=== PATIENT | male | born 1935 | race Caucasian/White ===

== ENCOUNTER 2017-09-18 12:09 | Emergency (ER) | payer MEDICARE, OTHER ==
[2014-01-07 15:49] VITALS: Ht 180.3 cm; Wt 98.9 kg
[~2017-09-18] VITALS: Ht 180.3 cm; Wt 98.9 kg
[~2017-09-18 12:09] MED LIST: ALBU8.5H IH; AMOX-559 PO; CA C1TAB85 PO; CETI-169 PO; CHOL10005 PO; CLI150 PO; CPAP INH; DIPH0.5D12 IM; FAMO20TA28 PO; FLUT16SP19 NS; HYDR-385 PO; IBUP800T37 PO; LEVO-85 PO; MAGN400T36 PO; MECL25TA9 PO; MOM PO; MONT10TA PO; NAPR-1043 PO; NAPR220C12 PO; PANT40TA65 PO; PHEN200T32 PO; PNEU0.5D3 IM; PRED20TA6 PO; SUCR1TAB85 PO; TAMS0.4C70 PO; TIO18R; TRIA10.8; [UNRECOGNIZED DRUG - CODE] PO
[2017-09-18] MEDS ORDERED: NS(*) 0.9% 1000 ML BAG 1,000 ML IV ONE (12:22)
--- NOTE | 2017-09-18 12:28 | ER Report ---
History and Physical Time Seen By MD: 12:13 Hx. of Stated Complaint: SOB, COUGH HPI/ROS CHIEF COMPLAINT: Cough, shortness of breath HISTORY OF PRESENT ILLNESS: Patient is a 81-year-old male who presents the ED with complaint of cough and shortness of breath for the past 10 days. He states that initially he thought he had a bad cold and states that his and him both were coughing after they visited [place], [place] for a wedding. He states that he was around multiple ill contacts at that time. He states that in the past 2-3 days he has developed some shortness of breath. He denies any fever. He has not noted any chest pain or palpitations. Patient denies any previous cardiac history such as heart failure or previous heart attacks. He states that he has never had any blood clots, pulmonary embolism, pneumonia, other lung issues in the past. He denies any back pain. REVIEW OF SYSTEMS: Constitutional: No fever, no chills. Eyes: No discharge. ENT: No sore throat. Cardiovascular: See history of present illness. Respiratory: See history of present illness. Gastrointestinal: No abdominal pain, no vomiting. Musculoskeletal: No back pain. Skin: No rashes. Neurological: No headache. Allergies: Coded Allergies: No Known Drug Allergies (Unverified , 09/18/17) Home Meds Active Scripts Tamsulosin Hcl (TAMSULOSIN HCL) 0.4 Mg Cap.er.24h, 1 CAP PO QHS, #90 CAP 1 Refill Prov:JENELLE ADKINS APRN 08/01/17 Cpap (CPAP HOME) [place], UNIT INH DAILY, #1 Prov:JENELLE ADKINS APRN 07/29/17 Meclizine Hcl (MECLIZINE HCL) 25 Mg Tablet, 1 TAB PO TID Y for DIZZINESS, #180 TAB 0 Refills Prov:JENELLE ADKINS APRN 06/20/17 Triamcinolone Acetonide (Nasacort) 10.8 Ml [place], 2 SPRAY NA DAILY, #3 BOTTLE 3 Refills Prov:JENELLE ADKINS APRN 06/20/17 Cetirizine Hcl (CETIRIZINE HCL) 10 Mg Tablet, 1 TAB PO QDAY, #90 TAB 3 Refills TAKE 1 TABLET DAILY. Prov:JENELLE ADKINS APRN ELEMENTARY SCHOOL DIRECTOR-C 06/20/17 Pantoprazole Sodium (PANTOPRAZOLE SODIUM) 40 Mg Tablet.dr, 40 MG PO BID, #60 TAB.SR 2 Refills Prov:SAGAR FRANKEL MD 08/11/16 Albuterol Sulfate 90 Mcg/Act (PROAIR HFA 90 MCG/ACT) 8.5 Gm Hfa.aer.ad, 2 PUFF IH TID Y for to help breathing., #1 CON 11 Refills Prov:SONIA SOSA MD 11/14/14 Reported Medications Magnesium Oxide (MAGNESIUM OXIDE) 400 Mg Tablet, 400 MG PO BID 07/21/17 Magnesium Hydroxide (MILK OF MAGNESIA) 400 Mg/5 Ml Oral.susp, 400 MG PO QWEEK, BOTTLE 08/10/16 Naproxen Sodium (ALEVE) 220 Mg Capsule, 1 TAB PO BID, #100 CAPSULE 11/14/14 Reviewed Nurses Notes: Yes Old Medical Records Reviewed: Yes Hx Smoking: No Smoking Status: Never Smoker Hx Alcohol Use: Yes Constitutional Vital Sign - Last 24 Hours 09/18/17 09/18/17 09/18/17 09/18/17 12:13 12:30 13:00 13:15 Temp 98.2 Pulse 126 117 111 Resp 22 24 9 B/P (MAP) 166/87 154/78 (103) 130/80 (97) 130/82 (98) Pulse Ox 91 93 O2 Delivery Room Air 09/18/17 09/18/17 09/18/17 09/18/17 13:47 13:52 13:52 14:00 Pulse 79 77 Resp 11 B/P (MAP) 144/71 (95) 133/78 (96) Pulse Ox 88 97 O2 Delivery Room Air 09/18/17 09/18/17 14:03 14:15 Pulse 72 B/P (MAP) 126/71 (89) Physical Exam General Appearance: The patient is alert, has no immediate need for airway protection and no signs of toxicity. Patient appears to be no acute distress. Eyes: Pupils equal and round no pallor or injection. ENT, Mouth: Mucous membranes are moist. Respiratory: There are no retractions, lungs are clear to auscultation. Cardiovascular: Tachycardia, regular rhythm. Gastrointestinal: Abdomen is soft and non tender, no masses, bowel sounds normal. Skin: Warm and dry, no rashes. Musculoskeletal: Neck is supple non tender. Extremities are nontender, nonswollen and have full range of motion. DIFFERENTIAL DIAGNOSIS: After history and physical exam differential diagnosis was considered for shortness of breath including but not limited to pulmonary infectious process, COPD, asthma, pulmonary embolus and congestive heart failure. Medical Decision Making Data Points Result Diagram: 09/18/17 1223 09/18/17 1223 Laboratory Hematology Test 09/18/17 12:23 Red Blood Count 4.92 M/uL (4.00-5.60) Mean Corpuscular Volume 96.1 fL (80.0-96.0) Mean Corpuscular Hemoglobin 33.5 pg (26.0-33.0) Mean Corpuscular Hemoglobin Concent 34.8 g/dL (32.0-36.0) Red Cell Distribution Width 13.2 % (11.5-14.5) Mean Platelet Volume 9.0 fL (7.2-11.1) Neutrophils (%) (Auto) 73.4 % (39.4-72.5) Lymphocytes (%) (Auto) 9.2 % (17.6-49.6) Monocytes (%) (Auto) 16.5 % (4.1-12.4) Eosinophils (%) (Auto) 0.2 % (0.4-6.7) Basophils (%) (Auto) 0.7 % (0.3-1.4) Nucleated RBC Relative Count (auto) 0.1 /100WBC Neutrophils # (Auto) 8.3 K/uL (2.0-7.4) Lymphocytes # (Auto) 1.0 K/uL (1.3-3.6) Monocytes # (Auto) 1.9 K/uL (0.3-1.0) Eosinophils # (Auto) 0.0 K/uL (0.0-0.5) Basophils # (Auto) 0.1 K/uL (0.0-0.1) Nucleated RBC Absolute Count (auto) 0.01 K/uL D-Dimer Quantitative (PE/DVT) 0.94 ug/ml (0-0.50) Sodium Level 134 mmol/L (137-145) Potassium Level 3.9 mmol/L (3.5-5.0) Chloride Level 101 mmol/L (98-107) Carbon Dioxide Level 19 mmol/L (22-30) Blood Urea Nitrogen 22 mg/dl (9-21) Creatinine 1.10 mg/dl (0.66-1.25) Glomerular Filtration Rate Calc > 60.0 Random Glucose 138 mg/dl (75-110) Calcium Level 9.0 mg/dl (8.4-10.2) Total Bilirubin 1.9 mg/dl (0.2-1.3) Aspartate Amino Transf (AST/SGOT) 61 U/L (0-35) Alanine Aminotransferase (ALT/SGPT) 56 U/L (0-56) Alkaline Phosphatase 98 U/L (0-126) Troponin I < 0.012 ng/ml B-Type Natriuretic Peptide 123 pg/ml (0-100) Total Protein 7.8 gm/dl (6.3-8.2) Albumin 4.1 g/dl (3.5-5.0) Chemistry Test 09/18/17 12:23 White Blood Count 11.3 k/uL (4.5-11.0) Red Blood Count 4.92 M/uL (4.00-5.60) Hemoglobin 16.5 g/dL (14.0-18.0) Hematocrit 47.3 % (42.0-52.0) Mean Corpuscular Volume 96.1 fL (80.0-96.0) Mean Corpuscular Hemoglobin 33.5 pg (26.0-33.0) Mean Corpuscular Hemoglobin Concent 34.8 g/dL (32.0-36.0) Red Cell Distribution Width 13.2 % (11.5-14.5) Platelet Count 250 K/uL (150-450) Mean Platelet Volume 9.0 fL (7.2-11.1) Neutrophils (%) (Auto) 73.4 % (39.4-72.5) Lymphocytes (%) (Auto) 9.2 % (17.6-49.6) Monocytes (%) (Auto) 16.5 % (4.1-12.4) Eosinophils (%) (Auto) 0.2 % (0.4-6.7) Basophils (%) (Auto) 0.7 % (0.3-1.4) Nucleated RBC Relative Count (auto) 0.1 /100WBC Neutrophils # (Auto) 8.3 K/uL (2.0-7.4) Lymphocytes # (Auto) 1.0 K/uL (1.3-3.6) Monocytes # (Auto) 1.9 K/uL (0.3-1.0) Eosinophils # (Auto) 0.0 K/uL (0.0-0.5) Basophils # (Auto) 0.1 K/uL (0.0-0.1) Nucleated RBC Absolute Count (auto) 0.01 K/uL D-Dimer Quantitative (PE/DVT) 0.94 ug/ml (0-0.50) Glomerular Filtration Rate Calc > 60.0 Calcium Level 9.0 mg/dl (8.4-10.2) Total Bilirubin 1.9 mg/dl (0.2-1.3) Aspartate Amino Transf (AST/SGOT) 61 U/L (0-35) Alanine Aminotransferase (ALT/SGPT) 56 U/L (0-56) Alkaline Phosphatase 98 U/L (0-126) Troponin I < 0.012 ng/ml B-Type Natriuretic Peptide 123 pg/ml (0-100) Total Protein 7.8 gm/dl (6.3-8.2) Albumin 4.1 g/dl (3.5-5.0) Coagulation Test 09/18/17 12:23 D-Dimer Quantitative (PE/DVT) 0.94 ug/ml EKG/Imaging EKG Interpretation 12 lead EKG: Rhythm: Sinus tachycardia, rate 121 bpm QRS: normal ST segments: No acute ST changes identified. Monitor Interpretation: Sinus Tachycardia Imaging CXR: IMPRESSION: Retrocardiac left lower lobe ill-defined consolidation is most suggestive of a pneumonia. Asymmetric aspiration pneumonitis could be considered in the appropriate setting as well. Report Dictated By: Yossi Gill MD at 09/18/2017 12:54 PM Report E-Signed By: Yossi Gill MD at 09/18/2017 12:55 PM CTA Chest: IMPRESSION: 1. No pulmonary embolism. 2. Left more so than right lower lobe patchy consolidation and airway thickening which could be due to multifocal pneumonia or aspiration pneumonitis. 3. Mild coronary calcifications. 4. Right hemithyroid 1.8 cm nodule. Consider further characterization by nonemergent thyroid ultrasound. Report Dictated By: Yossi Gill MD at 09/18/2017 2:00 PM Report E-Signed By: Yossi Gill MD at 09/18/2017 2:07 PM ED Course/Re-evaluation Clinical Indication for ER IV: Hydration ED Course Will obtain chest x-ray and labs. He is currently tachycardic and will give him 1 L normal saline bolus IV. 09/18/2017 2:30:14 pm - Discussed all labs and imaging with patient. He does appear to have some multifocal pneumonia of the bilateral lower lobes. He has some mild leukocytosis as well. There was an incidental finding of his thyroid which will need follow-up ultrasound. Discussed patient with Dr. Marinelli. Patient does have a CURB-65 score of 2. He does appear to be getting around well and believes he could be successful with close outpatient follow-up. We will give him 1 g Rocephin IV here and send him home with Omnicef and Zithromax. Dr. Marinelli agreed that this would be appropriate for some outpatient treatment. Discussed patient with his primary care provider Jenelle Adkins NP who states that she will follow-up with him in the next 1-2 days. Decision to Disposition Date: Sep 18, 2017 Decision to Disposition Time: 14:33 Depart Departure Latest Vital Signs Vital Signs Date Time Temp Pulse Resp B/P (MAP) Pulse Ox O2 Delivery O2 Flow Rate FiO2 09/18/17 14:15 126/71 (89) 09/18/17 14:03 72 09/18/17 14:00 11 97 09/18/17 13:52 Room Air 09/18/17 12:13 98.2 Impression: Primary Impression: Bilateral pneumonia Condition: Improved Disposition: HOME OR SELF-CARE Referrals: JENELLE ADKINS APRN ELEMENTARY S[employer]OL DIRECTOR-C (PCP) New Scripts Ipratropium/Albuterol Sulfate (IPRAT-ALBUT 0.5-3(2.5) MG/3 ML) 3 Ml Ampul.neb 3 ML IH Q6H Y for prn, #1 BOX Prov: JUAN CARLOS BAUM PA-C 09/18/17 Albuterol Sulfate (VENTOLIN HFA) 18 Gm Inh 2 PUFF INH Q4-6H Y for SHORTNESS OF BREATH, #1 INH Prov: JUAN CARLOS BAUM PA-C 09/18/17 Cefdinir 300 Mg Cap (OMNICEF 300 MG CAP (OR EQUIV)) 300 Mg Cap 300 MG PO BID, #20 CAP Prov: JUAN CARLOS BAUM PA-C 09/18/17 Azithromycin 250 Mg Tab (AZITHROMYCIN 250 MG TAB) 250 Mg Tablet 1 TAB PO QDAY, #6 TAB Take 2 tabs today and then 1 tab a day until gone. Prov: JUAN CARLOS BAUM PA-C 09/18/17 Departure Forms: ER Transition Record, Home Oxygen, Nebulizer RX, Durable Medical Equipment-Oxygen: Nebulizer Reason for Use/Diagnosis: Pneumonia Start Date of the Order: Sep 18, 2017 Route of Administration (if applicable): Nasal Cannula Room Air Oxygen Saturation: 90 ER Prescribing Physician's Name: Epifanio Baum Medications Reconciliation, Patient Portal Information Patient Instructions: Bacterial Pneumonia (ED) Additional Instructions: Stay well-hydrated. Follow-up with primary care provider in 1-2 days regarding her pneumonia and regarding the possible thyroid ultrasound. If having any worsening or concerning symptoms may return to the emergency department. MD Consult Note: Dr. Marinelli, Hospitalist Jenelle Adkins, SIGN MAKER - PCP Problem Qualifiers Primary Impression: Bilateral pneumonia Pneumonia type: due to unspecified organism Lung location: lower lobe of lung Qualified Codes: J18.9 - Pneumonia, unspecified organism JUAN CARLOS BAUM PA-C Sep 18, 2017 12:28
[2017-09-18 12:34] LABS: PLATELET COUNT, AUTOMATED 250 K/uL (150-450)
--- NOTE | 2017-09-18 12:44 | EKG ---
FACILITY: [facility] - [place] PATIENT NAME: TONY BUNN : [id number] MR: [id number] V: [id number] EXAM DATE: ORDERING PHYSICIAN: JUAN CARLOS BRADFORD TECHNOLOGIST: GIGI Chapman Reason : TACHY Blood Pressure : / mmHG Vent. Rate : 121 BPM Atrial Rate : 121 BPM P-R Int : 152 ms QRS Dur : 076 ms QT Int : 322 ms P-R-T Axes : 081 074 075 degrees QTc Int : 457 ms Sinus tachycardia Cannot rule out Anterior infarct , age undetermined Abnormal ECG When compared with ECG of 06-AUG-2016 09:53, T wave amplitude has increased in Inferior leads Confirmed by NARCISA CABRERA ([id number]) on 09/18/2017 8:37:36 PM Referred By: FRANCHESCA Confirmed By:NARCISA CABRERA
--- NOTE | 2017-09-18 12:59 | RADIOLOGY IMAGING REPORT ---
FACILITY: [facility] - [place] PATIENT NAME: Karl Nolasco : 1935 MR: [id number] V: [id number] EXAM DATE: ORDERING PHYSICIAN: JUAN CARLOS BRADFORD TECHNOLOGIST: Location: [facility] - [place] Patient: Karl Nolasco : 1935 Visit/Account:[id number] Date of Sevice: 09/18/2017 Examination: CHEST PA AND LAT Comparison: 07/30/2016 and earlier. History: Respiratory distress Findings: Cardiac and hilar contour size is within normal limits. New ill-defined retrocardiac left l ower lobe consolidation. No pneumothorax, edema, or effusion. Osseous structures are intact. 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 IMPRESSION: Retrocardiac left lower lobe ill-defined consolidation is most suggestive of a pneumonia. Asymmetric aspiration pneumonitis could be considered in the appropriate setting as well. Report Dictated By: Yossi Gill MD at 09/18/2017 12:54 PM Report E-Signed By: Yossi Gill MD at 09/18/2017 12:55 PM WSN:[id number]
[2017-09-18] MEDS ORDERED: IOPAMIDOL 76% 100 ML INFUS BTL 100 ML ONE (13:25)
[2017-09-18] MEDS ORDERED: NS 0.9% 20 ML SDV 100 ML ONE (13:25)
[2017-09-18] MEDS ORDERED: ALBUTEROL/IPRATROPIUM 3 ML NEB NEB ONE (13:55)
--- NOTE | 2017-09-18 14:12 | RADIOLOGY IMAGING REPORT ---
FACILITY: [facility] PATIENT NAME: Karl Nolasco : 1935 MR: [id number] V: [id number] EXAM DATE: ORDERING PHYSICIAN: JUAN CARLOS BRADFORD TECHNOLOGIST: Location: [facility] Patient: Karl Nolasco : 1935 Visit/Account:[id number] Date of Sevice: 09/18/2017 EXAMINATION: CT CHEST PULMONARY ANGIOGRAM COMPARISON: Chest x-ray same day and earlier. HISTORY: Elevated d-dimer. Shortness of breath. Tachycardia. PROCEDURE: Pulmonary arterial phase imaging of the chest with 100 mL intravenous Isovue 370. Reconstr uction of the source data set includes multiplanar 2D in the sagittal and coronal planes, and 3D seamus nstructed coronal slab MIP series. One of the following dose optimization techniques was utilized in the performance of this exam: Autom ated exposure control; adjustment of the mA and/or kV according to the patient's size; or use of an i terative reconstruction technique. Specific details can be referenced in the facility's radiology C T exam operational policy. FINDINGS: Pulmonary vasculature: There is good contrast opacification of the pulmonary arterial system. No pul monary embolism. Main pulmonary artery size is normal. Cardiac and mediastinum: Cardiac tumor size is normal. No pericardial effusion. Mild coronary calcifi cations. No thoracic aortic aneurysm. No thoracic lymph node enlargement. Right hemithyroid 1.8 x 1.2 cm nodule. Lungs and pleura: Left more so than right lower lobe tree-in-bud density and patchy consolidation. A small region of simple appearing parenchymal density is also noted in the posterior right upper lobe. No pneumothorax, edema, or effusion. Airways: Lower lobe predominant airway thickening. No airway occlusion. Upper abdomen: No evidence of acute disease within the visualized upper abdomen. Osseous structures: No acute abnormality. 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 IMPRESSION: 1. No pulmonary embolism. 2. Left more so than right lower lobe patchy consolidation and airway thickening which could be due t o multifocal pneumonia or aspiration pneumonitis. 3. Mild coronary calcifications. 4. Right hemithyroid 1.8 cm nodule. Consider further characterization by nonemergent thyroid ultrasou nd. Report Dictated By: Yossi Gill MD at 09/18/2017 2:00 PM Report E-Signed By: Yossi Gill MD at 09/18/2017 2:07 PM WSN:[id number]
[2017-09-18 14:15] VITALS: BP 126/71
[2017-09-18] MEDS ORDERED: cefTRIAXone 1 GM VIAL IVP ONE (14:25)
[2017-09-18] MEDS ORDERED: CEF300 PO (14:35)
[2017-09-18] MEDS ORDERED: AZIT-18 PO (14:35)
[2017-09-18] MEDS ORDERED: ALB18R INH (14:37)
[2017-09-18] MEDS ORDERED: IPRA3AMP21 IH (14:37)
== END 2017-09-18 14:55 | disposition home or self-care (01) ==
LOC: ER 12:17
DX: J18.9 Pneumonia, unspecified organism (principal)
CPT/HCPCS: 71046; 71275; 83880; 84484; 85025; 85379; 93005; 94640; 96361; 96374; 99284; J0696; J7030; J7050; J7620; Q9967; 82040; 82247; 82310; 82374; 82435; 82565; 82947; 84075; 84132; 84155; 84295; 84450; 84460; 84520

== ENCOUNTER → 2017-09-27 | Outpatient (CLI) | payer MEDICARE, OTHER ==
[2014-01-07 15:49] VITALS: BMI 30.1
[~2017-09-27] MED LIST changes: +ALB18R INH; +AZIT-18 PO; +CEF300 PO; +IPRA3AMP21 IH
--- NOTE | 2017-09-27 14:36 | RADIOLOGY IMAGING REPORT ---
FACILITY: [facility] PATIENT NAME: Karl Nolasco : 1935 MR: [id number] V: [id number] EXAM DATE: ORDERING PHYSICIAN: JENELLE ADKINS TECHNOLOGIST: Location: [facility] Patient: Karl Nolasco : 1935 Visit/Account:[id number] Date of Sevice: 09/27/2017 Exam type: CHEST PA AND LAT History: Cough and chest pain Comparison: September 10, 2017. Findings: Has been almost complete clearing of the patchy airspace consolidation in the medial left lower lobe. No new areas of pulmonary consolidation identified. There is no evidence pleural effusion's or pul monary edema.. The cardiac silhouette is normal in size. There are moderate spondylotic changes of the thoracic spine IMPRESSION: 1. Almost complete clearing of the patchy airspace consolidation the medial left lower lobe. Report Dictated By: Katheryn Black MD at 09/27/2017 2:30 PM Report E-Signed By: Katheryn Black MD at 09/27/2017 2:31 PM WSN:[email or web address]
== END ==
LOC: RAD 13:47
PROVIDERS: ATTEND Nurse Practitioner Family
DX: J18.9 Pneumonia, unspecified organism (principal)
CPT/HCPCS: 71046

== ENCOUNTER → 2017-10-18 | Outpatient (CLI) | payer MEDICARE, OTHER ==
[2014-01-07 15:49] VITALS: BMI 30.1
--- NOTE | 2017-10-18 16:17 | RADIOLOGY IMAGING REPORT ---
[place] [facility] [place] Karl Nolasco : 1935 MR: [id number] V: [id number] EXAM DATE: ORDERING PHYSICIAN: JENELLE ADKINS TECHNOLOGIST: Location: [facility] Patient: Karl Nolasco : 1935 Visit/Account:[id number] Date of Sevice: 10/18/2017 Exam type: CHEST PA AND LAT History: pneumonia Comparison: September 27, 2017 Findings: There has been clearing of the patchy airspace consolidation in the medial left lower lobe. No new a reas of pulmonary consolidation are identified. There is no evidence of pleural effusions or pulmona ry edema. Cardiac silhouette appears normal. The trachea is midline. There are moderate spondyloti c changes of the thoracic spine.. IMPRESSION: 1. There is been complete clearing of the left lower lobe infiltrate with no evidence of acute pulmo nary consolidation at this time Report Dictated By: Katheryn Black MD at 10/18/2017 4:11 PM Report E-Signed By: Katheryn Black MD at 10/18/2017 4:13 PM WSN:[email or web address]
== END ==
LOC: RAD 13:17
PROVIDERS: ATTEND Nurse Practitioner Family
DX: J18.9 Pneumonia, unspecified organism (principal)
CPT/HCPCS: 71046

== ENCOUNTER 2017-11-01 09:16 | Outpatient (RCR) | payer MEDICARE ==
[2014-01-07 15:49] VITALS: BMI 30.1
[2017-10-27 10:31] VITALS: BP 147/86
== END 2017-11-16 15:48 | disposition home or self-care (01) ==
LOC: RAON 09:16
PROVIDERS: ATTEND Radiology Radiation Oncology
DX: Z85.46 Personal history of malignant neoplasm of prostate (principal); Z92.3 Personal history of irradiation; Z79.899 Other long term (current) drug therapy
CPT/HCPCS: 36415; 84153; G0463; 99212

== ENCOUNTER → 2017-12-09 | Outpatient (CLI) | payer MEDICARE, OTHER ==
[2014-01-07 15:49] VITALS: BMI 30.1
[~2017-12-09] MED LIST changes: +WHEA1POW10 PO
[2017-12-09 11:10] LABS: PLATELET COUNT, AUTOMATED 145 K/uL (150-450)
== END ==
LOC: LAB 10:53
PROVIDERS: ATTEND Nurse Practitioner Family
DX: D64.9 Anemia, unspecified (principal); R03.0 Elevated blood-pressure reading, without diagnosis of hypertension; R73.01 Impaired fasting glucose
CPT/HCPCS: 36415; 82040; 82247; 82310; 82374; 82435; 82565; 82947; 83036; 84075; 84132; 84155; 84295; 84443; 84450; 84460; 84520; 85025

== ENCOUNTER → 2018-12-12 | Outpatient (CLI) | payer MEDICARE, OTHER ==
[2014-01-07 15:49] VITALS: BMI 30.1
[~2018-12-12] MED LIST changes: -DIPH0.5D12 IM; +DIPH0.5S2 IM; +FLU180SY11 IM; +FLUT1DIS28 IH; +IPRA3AMP10 IH; -IPRA3AMP21 IH
[2018-12-12 15:30] LABS: PLATELET COUNT, AUTOMATED 163 K/uL (150-450)
== END ==
LOC: LAB 15:00
PROVIDERS: ATTEND Nurse Practitioner Family
DX: Z12.5 Encounter for screening for malignant neoplasm of prostate (principal); J44.9 Chronic obstructive pulmonary disease, unspecified; R73.01 Impaired fasting glucose; I10 Essential (primary) hypertension
CPT/HCPCS: 36415; 83036; 84443; 85025; G0103; 82040; 82247; 82310; 82374; 82435; 82565; 82947; 84075; 84132; 84153; 84155; 84295; 84450; 84460; 84520